=== PATIENT | female | born 1950 | race Caucasian/White ===

== ENCOUNTER 2018-09-21 06:58 | Emergency (ER) | payer MEDICARE ==
[~2018-09-21] VITALS: Ht 162.6 cm; Wt 72.1 kg
[~2018-09-21 06:58] MED LIST: MECL12.5 PO; ZOF4T PO
[2018-09-21] MEDS ORDERED: normal saline 1000ML IV soln IVB ONE (07:20)
[2018-09-21] MEDS ORDERED: ondansetron/PF 4mg/2ml inj IV ONE (07:20)
[2018-09-21 08:04] LABS: BASOPHILS # (AUTO) 0.1 X10'3 (0-0.2); BASOPHILS % (AUTO) 0.5 % (0-1); EOSINOPHILS % (AUTO) 0.3 % (0-6); HEMATOCRIT 39.4 % (35.0-45.0); LYMPHOCYTES # (AUTO) 1.6 X10'3 (1.1-4.8); LYMPHOCYTES % (AUTO) 12.4 % (21-51); MEAN CORPUSCULAR HEMOGLOBIN 27.8 PG (27.0-31.0); MEAN CORPUSCULAR HGB CONC 33.1 g/dL (33.0-36.5); MEAN CORPUSCULAR VOLUME 84.1 FL (78-98); MEAN PLATELET VOLUME 7.7 FL (7.4-10.4); MONOCYTES # (AUTO) 0.4 X10'3 (0-0.9); MONOCYTES % (AUTO) 3.3 % (2-12); NEUTROPHILS # (AUTO) 10.8 X10'3 (1.8-7.7); NEUTROPHILS % (AUTO) 83.5 % (42-75); PLATELET COUNT 283 X10'3 (140-440); RED BLOOD COUNT 4.68 X10'6 (4.20-5.60); RED CELL DISTRIBUTION WIDTH 15.6 % (11.5-14.5); WHITE BLOOD COUNT 12.9 X10'3 (4.5-11.0)
[2018-09-21 08:12] LABS: ALANINE AMINOTRANSFERASE 27 U/L (12-78); ALBUMIN 4.1 G/DL (3.4-5.0); ALKALINE PHOSPHATASE 110 IU/L (46-116); ANION GAP 9 (8-16); ASPARTATE AMINO TRANSFERASE 19 U/L (10-37); BILIRUBIN,TOTAL 0.3 MG/DL (0.1-1.0); BLOOD UREA NITROGEN 11 MG/DL (7-18); BUN/CREATININE RATIO 15.3 (6.6-38.0); CALCIUM 9.8 MG/DL (8.5-10.1); CHLORIDE 100 MMOL/L (99-107); CREATININE 0.72 MG/DL (0.40-0.90); GLUCOSE 99 MG/DL (70-104); LIPASE 170 U/L (73-393); POTASSIUM 3.8 MMOL/L (3.5-5.1); SODIUM 136 MMOL/L (135-145); TOTAL PROTEIN 8.2 G/DL (6.4-8.2); eGFR 80 ML/MIN
[2018-09-21 08:50] LABS: CLARITY,URINE CLEAR (Clear); COLOR,URINE STRAW (Yellow); GLUCOSE, URINE NEGATIVE (Neg); KETONES,URINE NEGATIVE (Neg); LEUKOCYTE ESTERASE ,URINE NEGATIVE (Neg); NITRITES, URINE NEGATIVE (Neg); OCCULT BLOOD,URINE NEGATIVE (Neg); PH,URINE 6.5 (4.8-8.0); PROTEIN,URINE NEGATIVE (Neg); UROBILINOGEN,URINE 0.2 E.U/dL (0.2-1.0)
[2018-09-21 08:55] LABS: UA COLLECTION TYPE CLN CATCH MIDSTREAM
[2018-09-21] MEDS ORDERED: ONDA4TAB12 PO (08:55)
[2018-09-21 09:12] VITALS: BP 127/75
== END 2018-09-21 09:14 | disposition home or self-care (01) ==
LOC: ER 06:59
DX: R11.2 Nausea with vomiting, unspecified (principal); E86.0 Dehydration; E78.00 Pure hypercholesterolemia, unspecified; Z79.899 Other long term (current) drug therapy
CPT/HCPCS: 36415; 80053; 81003; 83690; 85025; 96361; 96374; 99283; J2405; J7030

== ENCOUNTER 2024-08-02 06:14 | Emergency (ER) | payer MEDICARE, OTHER ==
[~2024-08-02] VITALS: Ht 162.6 cm; Wt 76.6 kg
[~2024-08-02 06:14] MED LIST changes: +ONDA-243 PO
[2024-08-02] MEDS: ondansetron/PF 4mg/2ml inj IV ONE (07:10)
[2024-08-02] MEDS: ringers solution, lacted 1,000 ML IV ONE (07:10)
[2024-08-02] MEDS: cloNIDine 0.1 mg tablet PO ONE (07:11)
[2024-08-02 08:14] LABS: ALBUMIN 4.1 G/DL (3.4-5.0); ANION GAP 8 (8-16); BLOOD UREA NITROGEN 9 MG/DL (7-18); BUN/CREATININE RATIO 14.1 (10.0-20.0); CALCIUM 9.1 MG/DL (8.5-10.1); CHLORIDE 104 MMOL/L (99-107); CREATININE 0.64 MG/DL (0.40-0.90); GLUCOSE 98 MG/DL (70-104); SODIUM 138 MMOL/L (135-145); TOTAL CARBON DIOXIDE 26.1 MMOL/L (24-32); eCRCL 66 ML/MIN; eGFR 90 ML/MIN
[2024-08-02 08:26] LABS: BASOPHILS % (AUTO) 0.3 % (0-1); EOSINOPHILS # (AUTO) 0.1 X10'3 (0-0.9); EOSINOPHILS % (AUTO) 0.6 % (0-6); HEMATOCRIT 42.5 % (35.0-45.0); HEMOGLOBIN 14.1 g/dl (12.0-16.0); LYMPHOCYTES # (AUTO) 1.5 X10'3 (1.1-4.8); LYMPHOCYTES % (AUTO) 14.1 % (21-51); MEAN CORPUSCULAR HGB CONC 33.2 g/dL (33.0-36.5); MEAN CORPUSCULAR VOLUME 93.4 FL (78-98); MEAN PLATELET VOLUME 8.2 FL (7.4-10.4); MONOCYTES # (AUTO) 0.6 X10'3 (0-0.9); MONOCYTES % (AUTO) 5.3 % (2-12); NEUTROPHILS # (AUTO) 8.6 X10'3 (1.8-7.7); NEUTROPHILS % (AUTO) 79.7 % (42-75); PLATELET COUNT 305 X10'3 (140-440); RED BLOOD COUNT 4.55 X10'6 (4.20-5.60); RED CELL DISTRIBUTION WIDTH 13.6 % (11.5-14.5); WHITE BLOOD COUNT 10.9 X10'3 (4.5-11.0)
[2024-08-02 09:57] VITALS: BP 110/63; PULSE 83; RESP 12; TEMP 97; O2SAT 96
== END 2024-08-02 10:01 | disposition home or self-care (01) ==
LOC: ER 06:15
DX: R11.0 Nausea (principal); E86.0 Dehydration; E78.00 Pure hypercholesterolemia, unspecified; I10 Essential (primary) hypertension
CPT/HCPCS: 36415; 80048; 85025; 93005; 96361; 96374; 99284; J2405; J7120

== ENCOUNTER 2025-02-13 15:14 | Emergency (ER) | payer MEDICARE, OTHER ==
[~2025-02-13] VITALS: Ht 162.6 cm; Wt 76.7 kg
[2025-02-13 15:17] VITALS: TEMP 97.3
[2025-02-13] MEDS ORDERED: ESTR42.510 (15:45)
[2025-02-13] MEDS ORDERED: MESA1.2T3 PO (15:45)
[2025-02-13] MEDS ORDERED: LEVO75TA7 PO (15:45)
[2025-02-13] MEDS ORDERED: SIMV10TA98 PO (15:45)
[2025-02-13] MEDS ORDERED: AMLO5TAB16 PO (15:45)
--- NOTE | 2025-02-13 16:36 | ELECTROCARDIOGRAPH REPORT ---
[facility] Test Date: 2025-02-13 Test Time: 16:34:19 Pat Name: TL HINTON [facility]- [id number] Room: Gender: F Psychology Physician: : [id number] Requested By: VIRGINIA SAHU Order Number: [id number] Reading MD: Measurements Intervals Mercer Rate: 78 P: 76 VT: 188 QRS: 16 QRSD: 89 T: 69 QT: 407 QTc: 464 Interpretive Statements Atrial-paced complexes Please click the below link to view image of tracing.
[2025-02-13 16:57] LABS: CREATININE 0.77 MG/DL (0.40-0.90); TOTAL CARBON DIOXIDE 27.9 MMOL/L (24-32); eCRCL 54 ML/MIN; eGFR 73 ML/MIN
[2025-02-13 16:59] LABS: MEAN PLATELET VOLUME 7.7 FL (7.4-10.4); RED CELL DISTRIBUTION WIDTH 13.6 % (11.5-14.5)
--- NOTE | 2025-02-13 17:37 | Physician Documentation ---
History of Present Illness ~ Chief Complaint: Hypertension Stated Complaint: HIGH BP, DIZZY Time Seen by MD: 16:14 Primary Medical Doctor: Odette Bellamy Source: patient (3) HPI Patient comes in for evaluation of hypertension. She has a history of hypertension, takes medications for it and reports that she is compliant, but today she had some dizziness and lightheadedness after lunch. She checked her blood pressure and found it to be elevated in the 165 or 175 range, systolic, never over 200. This made her nervous, and she was nauseated, dizzy, and had a dry mouth. She tells me that she has chronic pressure in her sinuses which creates occasional mild dizziness, this was similar. Patient had no associated chest pain or shortness of breath, and feels better now. She took an amlodipine before coming in and blood pressure was elevated but not at a worrisome level on arrival. Medication Reconciliation Allergies: Coded Allergies: No Known Allergies (Unverified , 02/13/25) Scheduled Amlodipine Besylate (Amlodipine Besylate), 1 TAB PO DAILY, (Reported) Levothyroxine Sodium (Levothyroxine Sodium), 1 TAB PO QAM, (Reported) Meclizine Hcl* (Antivert*), 25 MG PO Q6H Mesalamine (Mesalamine), 4 TAB PO DAILY, (Reported) Ondansetron ODT* (Zofran ODT*), 4 MG PO Q6H Simvastatin (Simvastatin), 1 TAB PO HS, (Reported) Scheduled PRN ONDANSETRON ODT 4mg tablet (Ondansetron Odt), 1 TABLET PO Q6H PRN for nausea/vomiting Miscellaneous Medications Estradiol (Estradiol), (Reported) Past Medical History Past Medical History: High Cholesterol, Hypertension, Thyroid (unspecified) Past Surgical History: noncontributory Smoking Status: Never smoker Alcohol Use: Occasionally Lives with: Spouse Lives In: Home Review of Systems All Other Systems at this time: Reviewed and Negative Physical Exam Vital Signs: Temperature: 97.3, Source: Temporal, Heart Rate: 76, Respiratory Rate: 13, BP: 196/101, Pulse Oximetry: 99, Weight: 76.700 Oxygen Flow Rate: 0 Physical Exam General: Pt is awake, alert, oriented x4 in no acute distress and well appearing, although anxious appearing Head: Normocephalic and atraumatic. Eyes: Conjunctiva normal. ENT: Mucous membranes moist. Neck: Supple. Chest: Clear to auscultation bilaterally, without rales, rhonchi, or wheezes. There is no accessory muscle use or retractions. Cardiac: Regular rate and rhythm without murmurs, gallops or rubs. Palpation of the chest wall is normal. Abd: Soft, nondistended, nontender, with normoactive bowel sounds. No guarding or rebound. Extremities: Within normal limits without cyanosis, clubbing, or edema. Skin: Anthon, warm and dry with no significant rash appreciated. Neuro: Cranial nerves II-XII grossly intact. The gait is normal. Progress Results/Orders Results/Orders Orders - VIRGINIA SAHU MD Monitor (02/13/25 16:14) Saline Lock (02/13/25 16:14) Completed Orders - VIRGINIA SAHU MD Cbc/Diff (02/13/25 16:14) Electrocardiogram (02/13/25 16:14) BMP (02/13/25 16:14) Hs Troponin I W Calculations (02/13/25 16:14) Vital Signs 02/13/25 02/13/25 02/13/25 15:17 15:37 15:41 Temp 97.3 Pulse 77 76 Resp 16 12 13 B/P (MAP) 209/98 196/101 (132) Pulse Ox 97 99 O2 Flow Rate 0 0 Laboratory Tests Test 02/13/25 16:34 White Blood Count 8.9 Red Blood Count 4.62 Hemoglobin 14.5 Hematocrit 42.4 Mean Corpuscular Volume 91.6 Mean Corpuscular Hemoglobin 31.4 H Mean Corpuscular Hemoglobin Concent 34.3 Red Cell Distribution Width 13.6 Platelet Count 305 Mean Platelet Volume 7.7 Neutrophils (%) (Auto) 66.7 Lymphocytes (%) (Auto) 24.7 Monocytes (%) (Auto) 7.3 Eosinophils (%) (Auto) 0.8 Basophils (%) (Auto) 0.5 Neutrophils # (Auto) 5.9 Lymphocytes # (Auto) 2.2 Monocytes # (Auto) 0.6 Eosinophils # (Auto) 0.1 Basophils # (Auto) 0.0 CBC Comment Sodium Level 136 Potassium Level 3.7 Chloride Level 99 Carbon Dioxide Level 27.9 Anion Gap 9 Blood Urea Nitrogen 10 Creatinine 0.77 Estimated GFR/1.73 m2 73 BUN/Creatinine Ratio 13.0 Glucose Level 105 H Calcium Level 9.5 Troponin I High Sensitivity 11 Albumin 4.3 Chemistry Comments EKG/XRAY/CT/US/VASC/MRI EKG : Intepreting Monitor?: No EKG Rate: 78 EKG: paced EKG Blocks: none Hypertrophy: none Additional Comment Interpreted by me Medical Decision Making Additional Information Patient was concerned about some transient dizziness that she has it was slightly worse than usual, associated with elevation of her blood pressure. Most recent read here was 175 over 95. No evidence for acute ischemia on EKG, both troponin and kidney function appears normal on laboratory workup. The patient's primary care provider is here in the emergency department today and we discussed her case, she will see her in follow-up. Patient was reassured and sent out in stable condition. Departure Time of Disposition: 17:36 Disposition: 01 HOME / SELF CARE / HOMELESS Impression: Primary Impression: Hypertension Qualified Codes: I10 - Essential (primary) hypertension Condition: Stable Discharge Instructions: Hypertension, Adult, [id number] Additional Instructions: Please continue to take your regular medications, and follow-up with Odette; call her office tomorrow to make an appointment and follow-up. Stay well hydrated, return to the emergency department if blood pressure consistently above 200, any chest pain, shortness of breath, or any other concerns. Referrals: NO PRIMARY CARE PROVIDER (PCP) Education Educated: Patient, Family Educated regarding: diagnosis, treatment Signature Scribe Signature: Attestation: VIRGINIA SAHU MD Feb 13, 2025 17:37
[2025-02-13 17:56] VITALS: BP 157/89; PULSE 81; RESP 16; O2SAT 97
== END 2025-02-13 18:02 | disposition home or self-care (01) ==
LOC: ER 15:15
DX: I10 Essential (primary) hypertension (principal); E78.00 Pure hypercholesterolemia, unspecified; Z95.0 Presence of cardiac pacemaker; Z79.899 Other long term (current) drug therapy; Z72.89 Other problems related to lifestyle
CPT/HCPCS: 36415; 80048; 84484; 85025; 93005; 99284